=== PATIENT | female | born 1950 | race Caucasian/White ===

== ENCOUNTER → 2024-08-20 08:07 | Outpatient (CLI) | payer MEDICARE, OTHER, SELFPAY ==
--- NOTE | 2024-08-20 08:11 | DI.MRI.S_ITS ---
PROCEDURE: MR WRIST LT WO CON INDICATIONS: Pain in lt wrist TECHNIQUE: Noncontrast coronal proton density fast spin echo and T2 fast spin echo with fat saturation; coronal 3-D gradient echo, axial T1 spin echo and T2 fast spin echo with fat saturation, sagittal T1 spin echo through the wrist. COMPARISON: None. FINDINGS: Image quality: Excellent. Bones and cartilage: Mild edema involving 1st metacarpal shaft without discrete fracture line. Osteoarthritic changes are noted throughout wrist joints more notably involving 1st CMC joint and radiocarpal joint. Subcortical cystic area involving proximal lunate with mild surrounding edema and may represent changes related to osteoarthritis. No evidence of avascular necrosis. Carpal ligaments: The scapholunate ligament is mildly thickened with intrasubstance T2 hyperintense signal. The lunotriquetral ligament is intact. In the absence of intra-articular contrast, the extrinsic carpal ligaments are not well identified. On sagittal images, the pisohamate ligament appears intact. Triangular fibrocartilage complex: Mild degenerative changes are noted in triangular fibrocartilage without definite focal TFC tear. The adjacent meniscal homolog appears normal in the absence of intra-articular contrast. The extensor carpi ulnaris tendon is mildly thickened at the level of distal ulnar and ulnar styloid with intrasubstance T2 hyperintense signal. Tendons and soft tissues: The carpal tunnel structures appear normal, including the median nerve. The ulnar nerve appears normal within Guyon's canal. Small amount of fluid distension of extensor carpi radialis longus and brevis tendon sheath is seen over dorsal aspect of distal radius and proximal carpal bones. Rest of the extensor tendons are within normal limits. Likely small ganglion cyst over radial aspect of distal scaphoid is seen measures 6 x 4 mm in size. Tiny lobulated and septated ganglion cyst over volar aspect of proximal triquetrum is seen and measures up to 8 x 6 mm in size. IMPRESSION: 1. Mild edema involving 1st metacarpal shaft which may represent contusion. No discrete fracture line is seen. No displaced fracture or dislocation. [id number] wrist joint osteoarthritis. Subcortical cystic changes are noted involving proximal and ulnar aspect of lunate likely represent changes secondary to osteoarthritis. No evidence of avascular necrosis. 2. Low-grade sprain involving scapholunate ligament. The lunotriquetral ligament is intact. No full-thickness ligament rupture. 3. Degenerative changes are noted within triangular fibrocartilage without definite TFC tear. 4. Tendinosis/low-grade intrasubstance partial-thickness tear involving extensor carpi ulnaris tendon at the level of distal ulnar and ulnar styloid. 5. Low-grade tenosynovitis involving 2nd extensor compartment at the level of distal radius and proximal carpal row. 6. Small subcentimeter ganglion cysts as above. Dictated by: Levi Adorno M.D. on 08/22/2024 at 2:46 Approved by: Levi Adorno M.D. on 08/22/2024 at 2:53
== END ==
PROVIDERS: Referring Provider Physician Assistant; Visit Provider Physician Assistant
DX: S63.592A Other specified sprain of left wrist, initial encounter (principal); S66.812A Strain of other specified muscles, fascia and tendons at wrist and hand level, left hand, initial encounter; M19.032 Primary osteoarthritis, left wrist; M65.832 Other synovitis and tenosynovitis, left forearm; M67.432 Ganglion, left wrist; R60.0 Localized edema; M25.532 Pain in left wrist; X58.XXXA Exposure to other specified factors, initial encounter
CPT/HCPCS: 73221